=== PATIENT | male | born 1970 | race Caucasian/White ===

== ENCOUNTER 2016-11-11 00:54 | Emergency (ER) | payer BC ==
--- NOTE | 2016-11-21 20:32 | ER ---
ADMIT: 11/11/2016 RM/LOC: ER [facility] MR#: [id number] [address] [facility] [address], [place] [id number] GUILLENGennaroRICHARDSON GRSUS [address] [place] [address] Emergency Room Report SEX: M AGE: 46 : 1970 DATE: 11/11/2016 ADDENDUM: See T-sheet for complete H and P. A 46-year-old gentleman who comes in complaining of some epigastric abdominal pain which he describes as burning which has been going on for the past couple of days and has had some intermittent blood when he has had bowel movements. He describes the blood as bright red. He denies any history of hemorrhoids. His only past medical history reported is gastritis and states that within the last 8 months, he has had an EGD and a colonoscopy done. His physical exam was unremarkable. He did get a GI cocktail which made his epigastric pain significantly better. A Hemoccult stool was done which was not grossly positive but was positive for microscopic blood. His hemoglobin today was 13.2 with normal chemistries. Urinalysis was normal. With his history of gastritis, I did start the patient on Carafate here and he was also given a shot of Toradol as he states he was having a bit of a headache. Plan at this time is to discharge the patient on Carafate. He is to follow up with Dr. Taylor's office if he has any continued bleeding or return to the ER for any concerning symptoms. DIAGNOSES: 1. Lower GI bleeding. 2. Epigastric abdominal pain. Jose Pozo MD/ edita JOB #: [id number] CC: Jose Pozo MD, Attending Physician
== END 2016-11-11 03:26 | disposition home or self-care (01) ==
LOC: ER 00:54
DX: K92.2 Gastrointestinal hemorrhage, unspecified (principal); Z79.899 Other long term (current) drug therapy

== ENCOUNTER → 2016-11-15 | Outpatient (CLI) | payer BC | END | disposition home or self-care (01) | LOC: RAD.S 13:30 | DX: R10.9 Unspecified abdominal pain (principal); K92.1 Melena; K57.92 Diverticulitis of intestine, part unspecified, without perforation or abscess without bleeding; K76.89 Other specified diseases of liver; R91.1 Solitary pulmonary nodule ==